=== PATIENT | male | born 1955 | race African-American/Black ===

== ENCOUNTER → 2016-09-20 | Outpatient (CLI) | payer OTHER | LOC: OD 10:39 | PROVIDERS: ATTEND Family Medicine | DX: G56.01 Carpal tunnel syndrome, right upper limb (principal) ==

== ENCOUNTER → 2018-11-15 | Outpatient (CLI) | payer OTHER ==
--- NOTE | 2018-11-16 08:34 | RADIOLOGY REPORT (SQ) ---
EXAM DESCRIPTION: MRI LUMBAR SPINE WITHOUT COMPLETED DATE/TIME: 11/15/2018 7:12 pm REASON FOR STUDY: (M54.5)LOW BACK PAIN M54.5 LOW BACK PAIN COMPARISON: None. TECHNIQUE: Sagittal and Axial imaging includes T1, T2, STIR and gradient echo sequences. Coronal T2/ HASTE imaging. LIMITATIONS: None. FINDINGS: VISUALIZED UPPER ABDOMEN: Limited evaluation. No acute or suspicious findings suggested. SEGMENTATION: No transitional anatomy. The lowest well-developed disc space is labeled L5-S1. ALIGNMENT: Mild grade 1 anterolisthesis of L4 over L5 related to bulky facet arthropathy VERTEBRAE: Intact. BONE MARROW: Normal. No marrow replacement or reactive changes. DISC SIGNAL: Diffuse decreased T2 weighted intervertebral disc signal without disc space loss of heig ht POSTERIOR ELEMENTS: Generally intact. No pars defect evident. HARDWARE: None in the spine. CORD AND CONUS: Normal in size and signal intensity. Conus at the L1-2 level. SOFT TISSUES: No aortic aneurysm seen. No bulky retroperitoneal adenopathy or mass. No paraspinal mas s or fluid. T11-12: Bulky bilateral facet hypertrophy is present causing mild bilateral T11-12 foraminal narrowi ng and borderline central canal narrowing. T12-L1: No central or foraminal stenosis L1-L2: Moderate bilateral facet hypertrophy. No central or foraminal stenosis. L2-L3: Mild diffuse posterior disc bulging, mild bilateral facet and ligament hypertrophy. Borderlin e central canal narrowing. No significant foraminal narrowing. L3-L4: Broad diffuse posterior disc bulge and bony spurring, bulky bilateral facet hypertrophy. Bord lily central canal narrowing. Mild bilateral foraminal narrowing without exiting L3 nerve root imp ingement L4-L5: Mild anterolisthesis of L4 over L5, broad diffuse posterior disc bulge and bony spurring, very bulky bilateral facet hypertrophy causes high-grade central canal narrowing. Effacement of the CSF around the lumbar nerve roots axial image 26, sagittal image 8. Elsewhere at L4-5, there is mild to moderate bilateral foraminal narrowing without exit L4 nerve root impingement. L5-S1: Broad diffuse posterior disc bulge and bony spurring, bulky bilateral facet hypertrophy. No c entral stenosis. High-grade right, moderate left foraminal narrowing. Effacement of the fat planes around the exiting right L5 nerve root in the neural foramen on sagittal images 3 through 5. SACRUM: Visualized upper sacrum intact. OTHER: No other significant findings. IMPRESSION: Severe central canal stenosis at L4-5. High-grade right, moderate left foraminal narrowing at L5-S1. TECHNICAL DOCUMENTATION: JOB ID: [id number] [employer]- All Rights Reserved Reading location - IP/workstation name: [email or web address]
== END ==
LOC: RAD 18:18
PROVIDERS: ATTEND Orthopaedic Surgery Sports Medicine
DX: M54.5 Low back pain (principal); M48.07 Spinal stenosis, lumbosacral region
CPT/HCPCS: 72148